=== PATIENT | female | born 1975 | race Asian ===

== ENCOUNTER 2016-12-17 11:26 | Emergency (ER) | payer OTHER ==
[~2016-12-17] VITALS: Ht 172.7 cm; Wt 122.5 kg
[2016-12-17 11:44] VITALS: TEMP 98.9
[2016-12-17 11:56] VITALS: BP 142/98
== END 2016-12-17 12:02 | disposition home or self-care (01) ==
LOC: ED 11:26
DX: R11.10 Vomiting, unspecified (principal)
CPT/HCPCS: 99281